=== PATIENT | female | born 1990 | race Caucasian/White ===

== ENCOUNTER 2017-12-23 09:47 | Emergency (ER) | payer MEDICAID ==
[~2017-12-23] VITALS: Ht 167.6 cm; Wt 63.5 kg
[2017-12-23] MEDS ORDERED: AUGMENTIN 875-1 EAC1 ORAL (10:02)
[2017-12-23 10:03] VITALS: BP 116/72
[2017-12-23] MEDS ORDERED: NKM (10:08)
--- NOTE | 2017-12-23 10:19 | Emergency Room Report ---
History of Present Illness General Chief Complaint: Animal Bite Source: Patient Present Illness HPI 27-year-old female with dog bite to just below lower lip midline. Patient states she was dog sitting for a friend, has a puppy, puppy got excited and accidentally bit her on. Patient unsure of last tetanus update. Denies that bite was through lip, no teeth were loose and. Allergies: Coded Allergies: ACETAMINOPHEN (Verified Allergy, Unknown, 12/23/17) Uncoded Allergies: SEAFOOD (Allergy, Unknown, 12/23/17) Patient History Past Surgical History: none Pertinent Family History: none Social History: Denies: smoking, alcohol use, drug use Now: No Immunizations: UTD Reviewed Nursing Documentation: PMH: Agreed, PSxH: Agreed Nursing Documentation-PMH Past Medical History: No Stated History Review of Systems All Other Systems: negative except mentioned in HPI Physical Exam Vital Signs Date Time Temp Pulse Resp B/P (MAP) Pulse Ox O2 Delivery O2 Flow Rate FiO2 12/23/17 10:03 98.2 68 18 116/72 99 Room Air 98.2 Sp02 EP Interpretation: reviewed, normal General Appearance: normal inspection, well appearing, no apparent distress, alert, GCS 15, non-toxic Head: normocephalic, atraumatic Eyes: bilateral eye PERRL, bilateral eye EOMI ENT: normal ENT inspection, hearing grossly normal, normal pharynx, no angioedema, normal voice, TMs + canals normal, uvula midline, moist mucus membranes Neck: normal inspection, full range of motion, supple, thyroid normal, no meningismus, no bony tend Respiratory: normal inspection, lungs clear, normal breath sounds, no rhonchi, no respiratory distress, no retraction, no accessory muscle use, no wheezing, speaking full sentences Cardiovascular #1: regular rate, rhythm, no edema, no JVD, normal capillary refill Gastrointestinal: normal inspection, normal bowel sounds, non tender, soft, no mass, no peritonitis, non-distended, no guarding, no hernia, no pulsatile mass Genitourinary: no CVA tenderness Musculoskeletal: normal inspection, back normal, normal range of motion, no calf tenderness, pelvis stable, Whitney's Sign negative Neurologic: normal inspection, alert, oriented x3, responsive, tax credit leasing consultant III-XII nml as tested, motor strength/tone normal, cerebellar normal, normal gait, speech normal Psychiatric: normal inspection, judgement/insight normal, mood/affect normal, no suicidal/homicidal ideation, no delusions Skin: other - Very small 0.5 cm linear abrasion to midline right below lower lip Lymphatic: normal inspection, no adenopathy Medical Decision Making Diagnostic Impression: Primary Impression: Dog bite Qualified Codes: W54.0XXA - Bitten by dog, initial encounter Additional Impression: Abrasion, face w/o infection ER Course Vital signs stable, afebrile Minor abrasion no obvious laceration Tetanus updated in ER Prophylactic antibiotics provided ER course: Patient has remained stable during ED stay. Disposition: Patient is to be discharged to home. Prescriptions given are augmentin Patient is instructed to follow up with their primary care doctor within 5 days. Strict return precautions discussed with patient such as fever, chills, worsening/severe pain, nausea, vomiting, which may indicate severe illness. Patient verbalizes understanding and agrees with plan. Please note that this Emergency Department Report was dictated using [employer] nurse technology software, occasionally this can lead to erroneous entry secondary to interpretation by the dictation equipment Last Vital Signs Date Time Temp Pulse Resp B/P (MAP) Pulse Ox O2 Delivery O2 Flow Rate FiO2 12/23/17 10:03 98.2 68 18 116/72 99 Room Air 98.2 Status: improved Disposition: HOME, SELF-CARE Condition: Improved Scripts Amoxicillin/Potassium Clav 875-125* (AUGMENTIN 875-125 TABLET*) 1 Each Tablet 1 TAB ORAL TWICE A DAY for 5 Days, #10 TAB Prov: LESIA REDDY M.D. 12/23/17 Patient Instructions: Animal Bite, Othm-as-Grlj LESIA REDDY M.D. Dec 23, 2017 10:19
[2017-12-23] MEDS: Tetanus/Diptheria/Pertussis Vaccine 0.5ml Syr IM ONE (10:21)
[2017-12-23 10:37] VITALS: BP 112/68
== END 2017-12-23 10:45 | disposition home or self-care (01) ==
LOC: EMR 10:41
DX: S00.511A Abrasion of lip, initial encounter (principal); W54.0XXA Bitten by dog, initial encounter; Y92.9 Unspecified place or not applicable; Z23 Encounter for immunization; Z88.6 Allergy status to analgesic agent; Z91.013 Allergy to seafood
CPT/HCPCS: 90471; 90715; 99283